=== PATIENT | male | born 1975 | race Caucasian/White ===

== ENCOUNTER 2016-10-06 17:23 | Emergency (ER) | payer OTHER ==
[~2016-10-06] VITALS: Ht 177.8 cm; Wt 106.4 kg
[2016-10-06 17:29] VITALS: TEMP 36.6; Ht 177.8 cm; Wt 106.4 kg
[2016-10-06] MEDS ORDERED: KETOROLAC TROMETHAMINE 30 MG/ML VIAL IV STA (17:38)
[2016-10-06] MEDS ORDERED: SODIUM CHLORIDE 0.9% 1000ML 1,000 ML IV STA (17:38)
[2016-10-06] MEDS ORDERED: PROCHLORPERAZINE 5 MG/ML 2 ML VIAL IV STA (17:38)
[2016-10-06] MEDS ORDERED: DiphenhydrAMINE HCL 50 MG/ML VIAL IV STA (17:38)
[2016-10-06 19:43] VITALS: BP 131/81; PULSE 69; O2SAT 95
--- NOTE | 2016-10-07 01:39 | EMERGENCY ROOM VISIT NOTE ---
History Report prepared by Marni: Jennifer Cox Under the Supervision of: Dr. Nolan Mota M.D. First contact with patient: 17:33 Chief Complaint: HEADACHE Stated Complaint: MIGRAINE History of Present Illness The patient is a 40 year old male who presents to the Emergency Room with complaints of constant headache for the past 2 hours. He has a history of migraine headaches and states that he has been getting them since he was 8 years old. He states that this headache feels like his typical migraine headache. His pain is located in the front of his head above his left eye. The patient describes his pain as throbbing and rates it as an 8/10 in severity. He is also feeling nauseated. He denies fever, vomiting, numbness, weakness, recent illness, and any recent head trauma. The patient is not currently taking any medications for his migraines. He states that he has tried many different things in the past and nothing worked. He did not take any medication today. 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 A total of 10 systems reviewed and were otherwise negative. Past Medical & Surgical Medical Problems: (1) Migraine Family History Cancer Heart disease Hypertension Kidney disease Kidney stones Social History Smoking Status: Current Some Day Smoker Alcohol Use: occasionally Marital Status: Housing Status: lives with family Occupation Status: employed Current/Historical Medications No Active Prescriptions or Reported Meds Allergies Coded Allergies: No Known Allergies (Unverified , 12/18/14) Physical Exam Vital Signs Date Time Temp Pulse Resp B/P (MAP) Pulse Ox O2 Delivery O2 Flow Rate FiO2 10/06/16 19:43 69 18 131/81 95 Room Air 10/06/16 18:29 62 18 124/78 96 Room Air 10/06/16 17:29 36.6 78 18 124/89 95 Room Air Physical Exam Constitutional: Vital signs reviewed. Eyes: Pupils are equal round reactive to light. Conjunctiva are noninjected. ENT: Pharynx is clear without erythema or exudate. Mucous membranes are moist. Neck supple without meningeal signs. Respiratory: Clear to auscultation bilaterally. Breath sounds are equal bilaterally. Cardiovascular: Regular rate and rhythm. No rubs or gallops. GI: Soft, nondistended and nontender. Bowel sounds are present. Musculoskeletal: No peripheral edema. No lower extremity tenderness. Integumentary: No cyanosis. Neurological: The patient is awake and alert. Cranial nerves II-XII are intact. Motor is 5 out of 5 all extremities. Sensation is intact to light touch all extremities. Normal speech. No pronator drift. Psychiatric: Normal affect. Medical Decision & Procedures Medications Administered Medications (Trade) Dose Ordered Sig/Sal Route Start Time Stop Time Status Last Admin Dose Admin Prochlorperazine Edisylate (Compazine Inj) 10 mg NOW STAT IV 10/06/16 17:38 10/06/16 17:39 DC 10/06/16 18:29 10 MG Diphenhydramine HCl (Benadryl Inj) 50 mg NOW STAT IV 10/06/16 17:38 10/06/16 17:39 DC 10/06/16 18:29 50 MG Ketorolac Tromethamine (Toradol Inj) 10 mg NOW STAT IV 10/06/16 17:38 10/06/16 17:39 DC 10/06/16 18:29 10 MG Sodium Chloride 1,000 ml @ 999 mls/hr Q1H1M STAT IV 10/06/16 17:38 10/06/16 18:38 DC 10/06/16 18:30 999 MLS/HR ED Course 1733: The patient was evaluated in room C1B. A complete history and physical exam was performed. 1738: NSS 1000 ml @ 999 mls/hr IV, Toradol 10 mg IV, Benadryl 50 mg IV, Compazine 10 mg IV 1905: I reassessed the patient at this time. He is feeling better and resting comfortably. I discussed the results and treatment plan with the patient. I answered all pertaining questions that he had. He expressed understanding and verbalized agreement. The patient will be discharged home. Medical Decision This is a 40-year-old male presents with a migraine headache. I did perform a limited focused review of portions of the patient's old chart on the electronic medical record. The patient was last here for a migraine in 2014. Medication Reconciliation: I attest that I have personally reviewed the patient' s current medication list. Blood Pressure Screening: Patient was found to have an elevated blood pressure and was referred to their primary doctor for recheck and further treatment. I did evaluate the patient as noted above. He is presenting with a headache which is identical to his previous migraine headaches. He has no fever or neurologic symptoms. I have no reason to suspect an intracranial hemorrhage or meningitis. IV access was established. I did treat him with IV Compazine, Benadryl, Toradol and normal saline. I did reassess the patient. He states he is feeling better. He was discharged in good condition. He was advised follow with his doctor and given return instructions as outlined below. Impression Primary Impression: Acute headache Scribe Attestation The scribe's documentation has been prepared under my direct and personally reviewed by me in its entirety. I confirm that the note above accurately reflects all work, treatment, procedures, and medical decision making performed by me. Departure Information Dispostion Home / Self-Care Prescriptions No Active Prescriptions or Reported Meds Referrals No Doctor, Assigned (PCP) Andre Alcazar ([place]) Forms HOME CARE DOCUMENTATION FORM, IMPORTANT VISIT INFORMATION Patient Instructions ED Headache Migraine, My [facility] Additional Instructions You have been examined and treated today on an emergency basis only. This is not a substitute for, or an effort to provide, complete comprehensive medical care. It is impossible to recognize and treat all injuries or illnesses in a single emergency department visit. It is therefore important that you follow up closely with your physician. Call as soon as possible for an appointment. Return for worsening symptoms or if you develop fever, numbness or weakness on one side of your body, difficulties with your speech or walking, or any other concerning symptoms. Problem Qualifiers Primary Impression: Acute headache Headache type: unspecified Intractability: not intractable Qualified Codes : R51 - Headache
== END 2016-10-06 19:45 | disposition home or self-care (01) ==
LOC: C.EDB 17:25 → C.EDC 19:45
DX: R51 Headache (principal); Z80.9 Family history of malignant neoplasm, unspecified; Z82.49 Family history of ischemic heart disease and other diseases of the circulatory system; Z84.1 Family history of disorders of kidney and ureter; F17.210 Nicotine dependence, cigarettes, uncomplicated

== ENCOUNTER 2016-10-27 18:48 | Emergency (ER) | payer OTHER ==
[~2016-10-27] VITALS: Ht 177.8 cm; Wt 105.0 kg
[2016-10-27 19:02] VITALS: BP 131/86; PULSE 59; TEMP 36.7; O2SAT 95; Ht 177.8 cm; Wt 105.0 kg
[2016-10-27] MEDS ORDERED: KETOROLAC TROMETHAMINE 30 MG/ML VIAL IV STA (19:34)
[2016-10-27] MEDS ORDERED: SODIUM CHLORIDE 0.9% 1000ML 1,000 ML IV STA (19:34)
[2016-10-27] MEDS ORDERED: PROCHLORPERAZINE 5 MG/ML 2 ML VIAL IV STA (19:34)
[2016-10-27] MEDS ORDERED: DiphenhydrAMINE HCL 50 MG/ML VIAL IV STA (19:34)
[2016-10-27] MEDS ORDERED: BUTALBITAL/ACETAMIN/CAFFEINE TAB PO STA (20:20)
[2016-10-27] MEDS ORDERED: FRCT/ PO (20:23)
[2016-10-27] MEDS ORDERED: EMPTY 8 DRAM VIAL ONE (20:27)
--- NOTE | 2016-10-27 20:34 | EMERGENCY ROOM VISIT NOTE ---
History First contact with patient: 19:16 Chief Complaint: HEADACHE Stated Complaint: MIGRAINE History of Present Illness The patient is a 40 year old male who presents to the Emergency Room with complaints of a 2 hour migraine. The patient reports a history of infrequent migraines, and usually develops visual auras. The patient reports that he was last seen here earlier in the month, which is unusual. He reports that the eye gr still feels the same as all prior migraines with a left retro-orbital/ forehead throbbing pain with left-sided headache. He also reports nausea without vomiting, light sensitivity and phonophobia. She has had migraines since childhood, and reports that this feels the same. He denies any recent head injury, upper respiratory infection or risk of carbon monoxide exposure. He rates his headache a 7 out of 10. Review of Systems 10 system review was performed and was negative except for pertinent positives and negatives as indicated in history of present illness Past Medical/Surgical History Medical Problems: (1) Migraine Family History Cancer Heart disease Hypertension Kidney disease Kidney stones Social History Smoking Status: Current Every Day Smoker Alcohol Use: occasionally Marital Status: Housing Status: lives with family Occupation Status: employed Current/Historical Medications Scheduled PRN Acetamin/Butalbital/Caffeine (Fioricet), 1-2 TAB PO Q4H PRN for Migraine Allergies Coded Allergies: No Known Allergies (Unverified , 10/27/16) Physical Exam Vital Signs Date Time Temp Pulse Resp B/P (MAP) Pulse Ox O2 Delivery O2 Flow Rate FiO2 10/27/16 19:02 36.7 59 18 131/86 95 Room Air Physical Exam CONSTITUTIONAL: Healthy and well nourished. Alert and oriented X 3 with positive affect. HEENT: Normocephalic, atraumatic. Pupils equal, round and reactive. Patient is photophobic, precluding funduscopic exam. NECK: Full active range of motion without discomfort. No JVD or carotid bruits. RESPIRATORY: Clear to auscultation bilaterally with no wheezing, crackles, rhonchi or stridor. CARDIOVASCULAR: Regular rate and rhythm with no murmurs, rubs or gallops. GASTROINTESTINAL: Bowel sounds present in all quadrants. MUSCULOSKELETAL: Full range of motion of all joints without discomfort. INTEGUMENTARY: No rash or other significant dermatologic conditions noted. NEUROLOGIC: No focal neurologic deficits noted. No ataxia. Negative pronator drift. Medical Decision & Procedures Medications Administered Medications (Trade) Dose Ordered Sig/Sal Route Start Time Stop Time Status Last Admin Dose Admin Sodium Chloride 1,000 ml @ 999 mls/hr Q1H1M STAT IV 10/27/16 19:34 10/27/16 20:34 10/27/16 19:46 999 MLS/HR Ketorolac Tromethamine (Toradol Inj) 30 mg NOW STAT IV 10/27/16 19:34 10/27/16 19:36 DC 10/27/16 19:46 30 MG Diphenhydramine HCl (Benadryl Inj) 50 mg NOW STAT IV 10/27/16 19:34 10/27/16 19:36 DC 10/27/16 19:46 50 MG Prochlorperazine Edisylate (Compazine Inj) 10 mg NOW STAT IV 10/27/16 19:34 10/27/16 19:36 DC 10/27/16 19:46 10 MG ED Course Patient history and physical exam were performed. Nurse's notes were reviewed. Vital signs were reviewed and normal. I did review the patient's last ED visit notes. The patient received parenteral treatment. The patient reports that he did have decent migraine relief, however this form of treatment usually takes a few hours to be effective. The patient did, however, agreed to similar treatment, refusing intramuscular treatment. IV access was established, and the patient was hydrated with normal saline. He received Toradol 30 mg, Compazine 10 mg and Benadryl 50 mg. The patient was observed for 30 minutes. Whenever back in to discuss his pain level, he rated it a 5 out of 10, and stated "I just want to go home and go to bed." The patient has never tried Fioricet in the past for his headaches. He was dispensed 4 tablets to go in a home pack, along with a prescription for more Fioricet if that helps with his pain. The patient reports that he has taken all kinds of migraine medications in the past without significant relief. He has not had a formal migraine evaluation in many years. He was instructed to follow-up with his PCP if his migraine frequency persists. He is welcome to return to the emergency department as needed for further migraine treatment. The patient was happy with plan of care, and voiced understanding of all discharge instructions. Medical Decision Patient presents to the emergency department with complaint of migraine that is typical of his migraines. Based on history and physical exam findings, I do not suspect meningitis, CVA/TIA, thromboembolic event, abscess, intracranial bleed or carbon monoxide poisoning. Impression Primary Impression: Migraine Departure Information Dispostion Home / Self-Care Prescriptions Acetamin/Butalbital/Caffeine (FIORICET) 1 Ea Tab 1-2 TAB PO Q4H Y for Migraine, #20 TAB Prov: Aman Dexter PA 10/27/16 Forms HOME CARE DOCUMENTATION FORM, IMPORTANT VISIT INFORMATION Patient Instructions My [facility] Additional Instructions Rest and remain well-hydrated. Take Fioricet 1-2 caps every 4 hrs (max 6 caps/day) as needed for migraines. Return to the emergency department for any persistent or progressively worsening pain, fever or other concerning neurologic symptoms. Suggest follow-up with your family doctor if the frequency of migraines continue. Problem Qualifiers Primary Impression: Migraine Migraine type: with aura Status migrainosus presence: without status migrainosus Intractability: not intractable Qualified Codes: G43.109 - Migraine with aura, not intractable, without status migrainosus
== END 2016-10-27 20:34 | disposition home or self-care (01) ==
LOC: C.EDB 18:49 → C.EDD 20:34
DX: G43.909 Migraine, unspecified, not intractable, without status migrainosus (principal); F17.200 Nicotine dependence, unspecified, uncomplicated; Z80.9 Family history of malignant neoplasm, unspecified; Z82.49 Family history of ischemic heart disease and other diseases of the circulatory system; Z84.1 Family history of disorders of kidney and ureter